=== PATIENT | male | born 1955 | race American Indian/Alaskan Native ===

== ENCOUNTER 2020-12-18 18:39 | Observation (INO) | payer MEDICARE ==
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
[2020-12-18 21:26] LABS: Basophils # (Auto) 0.1 K/mm3 (0.0-0.1); Basophils % (Auto) 1.5 % (0.0-1.8); Eosinophils # (Auto) 0.2 K/mm3 (0.0-0.4); Eosinophils % (Auto) 5.3 % (0.0-4.3); Hematocrit 36.7 % (35.5-45.6); Hemoglobin 11.7 gm/dl (11.8-15.2); Lymphocytes # (Auto) 1.5 K/mm3 (1.2-5.4); Lymphocytes % (Auto) 33.8 % (13.4-35.0); Mean Corpuscular HGB Conc 32 % (32-34); Mean Corpuscular Volume 98 fl (84-94); Monocytes # (Auto) 0.6 K/mm3 (0.0-0.8); Monocytes % (Auto) 13.1 % (0.0-7.3); Platelet Count 155 K/mm3 (140-440); Red Blood Count 3.74 M/mm3 (3.65-5.03); Red Cell Distribution Width 16.5 % (13.2-15.2)
[2020-12-18] MEDS ORDERED: LACTATED RINGERS 500 ML IV ONE (21:26)
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
[2020-12-18 21:35] LABS: INR 1.09 (0.87-1.13)
[2020-12-18 21:41] LABS: Albumin 3.3 g/dL (3.9-5); Calcium 7.8 mg/dL (8.4-10.2)
[2020-12-18] MEDS ORDERED: MORPHINE 4 MG/1 ML INJ IV PRN (22:27)
[2020-12-18] MEDS ORDERED: MAGNESIUM HYDROXIDE (MOM) ORAL LIQD UDC PO PRN (22:27)
[2020-12-18] MEDS ORDERED: ONDANSETRON 4 MG/2 ML INJ IV PRN (22:27)
[2020-12-18] MEDS ORDERED: MORPHINE 2 MG/1 ML INJ IV PRN (22:27)
[2020-12-18] MEDS ORDERED: ACETAMINOPHEN 325 MG TAB PO PRN (22:27)
[2020-12-18] MEDS ORDERED: SODIUM CHLORIDE 0.9% 1000 ML 1,000 ML IV SCH (22:30)
--- NOTE | 2020-12-18 22:35 | History and Physical Report ---
History of Present Illness Date of examination: 12/18/20 Date of admission: 12/18/2020 Chief complaint: Hypotension History of present illness: 65-year-old -[place] male with known history of CHF, anemia, hypothyroidism, COPD and history of malnutrition, end-stage renal disease who gets dialysis on Mondays, Wednesdays and Fridays presents to the emergency room today with hypotension. Patient is currently on metoprolol and hydralazine for his blood pressure. Dialysis could not be done today because of hypotension. Systolic blood pressure was said to be in the 60s and 70s patient was subsequently given some IV fluid by EMS in route to the hospital with some improvement in his blood pressure. Patient denies any headache or dizziness but indicates that he has generalized weakness. Denies any fever or chills, no chest pain or shortness of breath, no nausea vomiting, no abdominal pain, no diarrhea. Patient denies any sick contacts and denies any contact with anyone with COVID-19. Patient recently moved from [place] in the first week of this month to spend time with his daughter and grandchildren. Upon arrival in the emergency room systolic blood pressure did improve to the low 100s. Work-up in the emergency room today including chest x-ray reveals cardiomegaly, right basilar scarring with no focal airspace consolidation or pneumothorax Past History Past Medical History: COPD, dialysis, ESRD, hypertension, hyperlipidemia, migraines, stroke Past Surgical History: Other (Pacemaker placement, left arm AV fistula placement.) Social history: smoking (Former smoker), full code Family history: no significant family history Medications and Allergies Allergies Allergy/AdvReac Type Severity Reaction Status Date / Time methimazole [From Tapazole] Allergy Severe Anaphylaxis Verified 12/18/20 20:35 Home Medications Medication Instructions Recorded Confirmed Last Taken Type Amiodarone 100 MG TAB 12/18/20 Unknown History Atorvastatin Calcium 12/18/20 Unknown History Active Meds: Active Medications Acetaminophen (Acetaminophen 325 Mg Tab) 650 mg PO Q4H PRN PRN Reason: Pain MILD(1-3)/Fever >100.5/ARAYA Heparin Sodium (Porcine) (Heparin 5,000 Unit/1 Ml Vial) 5,000 unit SUB-Q Q8HR FAUSTO Sodium Chloride (Nacl 0.9% 1000 Ml) 1,000 mls @ 75 mls/hr IV DIRECT FAUSTO Magnesium Hydroxide (Magnesium Hydroxide (Mom) Oral Liqd Udc) 30 ml PO Q4H PRN PRN Reason: Constipation Morphine Sulfate (Morphine 2 Mg/1 Ml Inj) 2 mg IV Q4H PRN PRN Reason: Pain, Moderate (4-6) Morphine Sulfate (Morphine 4 Mg/1 Ml Inj) 4 mg IV Q4H PRN PRN Reason: Pain , Severe (7-10) Ondansetron HCl (Ondansetron 4 Mg/2 Ml Inj) 4 mg IV Q8H PRN PRN Reason: Nausea And Vomiting Sodium Chloride (Sodium Chloride 0.9% 10 Ml Flush Syringe) 10 ml IV BID FUASTO Sodium Chloride (Sodium Chloride 0.9% 10 Ml Flush Syringe) 10 ml IV PRN PRN PRN Reason: LINE FLUSH Review of Systems Constitutional: no fever, no chills Ears, nose, mouth and throat: no nasal congestion, no sore throat Cardiovascular: no chest pain, no palpitations Respiratory: no cough, no shortness of breath Gastrointestinal: no abdominal pain, no nausea, no vomiting, no diarrhea Genitourinary Male: no dysuria, no hematuria, no flank pain, no nocturia Musculoskeletal: no neck pain, no low back pain Integumentary: no rash, no pruritis Neurological: weakness, no syncope, no headaches, no confusion Psychiatric: no anxiety, no depression Endocrine: no polyphagia, no polydipsia, no polyuria, no nocturia Exam - Constitutional Vitals: Temp Pulse Resp BP Pulse Ox 98.6 F 106 H 17 106/63 99 12/18/20 20:56 12/18/20 20:01 12/18/20 20:30 12/18/20 20:01 12/18/20 20:01 General appearance: Present: no acute distress, well-nourished - EENT Eyes: Present: PERRL, EOM intact. Absent: scleral icterus ENT: hearing intact, clear oral mucosa, dentition normal - Neck Neck: Present: supple, normal ROM - Respiratory Respiratory effort: normal Respiratory: bilateral: CTA - Cardiovascular Rhythm: regular Heart Sounds: Present: S1 & S2, systolic murmur (3/6 systolic murmur). Absent: gallop, diastolic murmur, rub, click - Extremities Extremities: no ischemia, pulses intact, pulses symmetrical, No edema, normal temperature, normal color, Full ROM Peripheral Pulses: within normal limits - Abdominal General gastrointestinal: Present: soft, non-tender, non-distended, normal bowel sounds. Absent: mass - Integumentary Integumentary: Present: clear, warm, dry. Absent: rash - Musculoskeletal Musculoskeletal: strength equal bilaterally, other (Left upper extremity AV fistula) - Psychiatric Psychiatric: appropriate mood/affect, intact judgment & insight, memory intact, cooperative - Neurologic Neurologic: CNII-XII intact, no focal deficits, moves all extremities Results - Labs CBC & Chem 7: 12/18/20 20:44 12/18/20 20:44 Labs: Abnormal lab results 12/18/20 12/18/20 12/18/20 Range/Units 20:44 20:44 20:44 WBC 4.3 L (4.5-11.0) K/mm3 Hgb 11.7 L (11.8-15.2) gm/dl MCV 98 H (84-94) fl RDW 16.5 H (13.2-15.2) % [place] % (Auto) 13.1 H (0.0-7.3) % Eos % (Auto) 5.3 H (0.0-4.3) % BUN 37 H (9-20) mg/dL Creatinine 9.8 H (0.8-1.3) mg/dL Calcium 7.8 L (8.4-10.2) mg/dL Phosphorus 4.90 H (2.5-4.5) mg/dL Magnesium 2.40 H (1.7-2.3) mg/dL AST 42 H (5-40) units/L Alkaline Phosphatase 155 H (35-129) units/L Ammonia (25-60) umol/L Total Protein 8.5 H (6.3-8.2) g/dL Albumin 3.3 L (3.9-5) g/dL TSH 6.440 H (0.270-4.200) mlU/mL 12/18/20 Range/Units 20:44 WBC (4.5-11.0) K/mm3 Hgb (11.8-15.2) gm/dl MCV (84-94) fl RDW (13.2-15.2) % [place] % (Auto) (0.0-7.3) % Eos % (Auto) (0.0-4.3) % BUN (9-20) mg/dL Creatinine (0.8-1.3) mg/dL Calcium (8.4-10.2) mg/dL Phosphorus (2.5-4.5) mg/dL Magnesium (1.7-2.3) mg/dL AST (5-40) units/L Alkaline Phosphatase (35-129) units/L Ammonia 23.0 L (25-60) umol/L Total Protein (6.3-8.2) g/dL Albumin (3.9-5) g/dL TSH (0.270-4.200) mlU/mL Assessment and Plan - Patient Problems (1) Hypotension Current Visit: Yes Status: Acute Plan to address problem: Possibly iatrogenic. Will review and reconcile home medications. Will monitor vital signs closely. Meanwhile patient will be placed on gentle IV hydration with normal saline. (2) End-stage renal disease on hemodialysis Current Visit: Yes Status: Acute Plan to address problem: Patient gets dialysis on Mondays, Wednesdays and Fridays. His current mechatronics engineer is:Dr. Tyshawn Dwyer [employer] has been consulted for evaluation. He did not get his dialysis today because of the hypotension. (3) Hypothyroidism Current Visit: Yes Status: Acute Plan to address problem: We will resume routine home medications and monitor TSH and free T4. (4) DVT prophylaxis Current Visit: Yes Status: Acute Plan to address problem: Patient placed on subcutaneous heparin.
[2020-12-19] MEDS: HEPARIN 5,000 UNIT/1 ML VIAL SUB-Q SCH ×2 (05:32→16:29)
[2020-12-19 06:31] LABS: INR 1.09 (0.87-1.13)
[2020-12-19] MEDS ORDERED: SODIUM CHLORIDE 0.9% 100 ML IV PRN (07:30)
[2020-12-19 08:00] LABS: Calcium 7.6 mg/dL (8.4-10.2)
[2020-12-19] MEDS ORDERED: HEPARIN 10,000 UNITS/10 ML VIAL IV PRN (08:00)
[2020-12-19] MEDS: SEVELAMER CARBONATE 800 MG TAB PO SCH ×3 (08:02→18:09)
--- NOTE | 2020-12-19 09:15 | Consultation ---
History of Present Illness - Reason for Consult Consult date: 12/19/20 end stage renal disease - History of Present Illness The patient is a 65 YO AAM with known history of CHF, Anemia, Hypothyroidism, COPD and ESRD on hemodialysis (MWF) who presented to [facility] ED 12/18 for evaluation of hypotension. Patient was taking Metoprolol and Hydralazine for hypertension. he couldn't get dialysis on 12/18/20 due to hypotension. Systolic blood pressure was said to be in the 60s and 70s, EMS was called, patient was subsequently given some IV fluid by EMS in route to the hospital with some improvement in his blood pressure. Hsi BP got better in the ED. Patient denies any complaint. Denies any fever, chills, chest pain, shortness of breath, nausea, vomiting, abdominal pain, diarrhea, dizziness, syncope, leg swelling, sick contacts and any contact with anyone with COVID-19. Patient recently moved from [place] in the first week of this month to spend time with his daughter and grandchildren. CXR showed cardiomegaly, right basilar scarring with no focal airspace consolidation or pneumothorax. Nephrology was consulted for ESRD management. Past History Past Medical History: COPD, dialysis, ESRD, hypertension, hyperlipidemia, migraines, stroke Past Surgical History: Other (Pacemaker placement, left arm AV fistula placem ent.) Social history: smoking (Former smoker), full code Family history: no significant family history Medications and Allergies Allergies Allergy/AdvReac Type Severity Reaction Status Date / Time methimazole [From Tapazole] Allergy Severe Anaphylaxis Verified 12/18/20 20:35 Home Medications Medication Instructions Recorded Confirmed Last Taken Type Amiodarone HCl [Amiodarone 100 MG 100 mg PO 12/19/20 Unknown History TAB] AtorvaSTATin [Lipitor] 12/19/20 Unknown History Calcium Carbonate [Calcium 500 mg PO 12/19/20 Unknown History Carbonate 500MG TAB] Hydralazine HCl 50 mg PO 12/19/20 Unknown History Isosorbide Dinit/Hydralazine 1 each PO 12/19/20 Unknown History [Bidil 20 mg-37.5 mg Tablet] Lactulose 10 gm PO 12/19/20 Unknown History Levothyroxine Sodium 137 mcg PO 12/19/20 Unknown History [Levothyroxine] Metoprolol [Lopressor] 25 mg PO 12/19/20 Unknown History Sevelamer Carbonate [Renvela] 800 mg PO TIDWM 12/19/20 12/19/20 Unknown History levETIRAcetam [Keppra TAB] 500 mg PO BID 12/19/20 12/19/20 Unknown History Active Meds: Active Medications Acetaminophen (Acetaminophen 325 Mg Tab) 650 mg PO Q4H PRN PRN Reason: Pain MILD(1-3)/Fever >100.5/ARAYA Heparin Sodium (Porcine) (Heparin 5,000 Unit/1 Ml Vial) 5,000 unit SUB-Q Q8HR [facility] Last Admin: 12/19/20 05:32 Dose: 5,000 unit Documented by: Heparin Sodium (Porcine) (Heparin 10,000 Units/10 Ml Vial) 3,000 unit IV IGNACIO PRN PRN Reason: hemodialysis Sodium Chloride (Nacl 0.9% 1000 Ml) 1,000 mls @ 75 mls/hr IV DIRECT FAUSTO Sodium Chloride (Nacl 0.9%) 100 mls @ 999 mls/hr IV IGNACIO PRN PRN Reason: Hypotension Levetiracetam (Levetiracetam 500 Mg Tab) 500 mg PO BID [facility] Magnesium Hydroxide (Magnesium Hydroxide (Mom) Oral Liqd Udc) 30 ml PO Q4H PRN PRN Reason: Constipation Morphine Sulfate (Morphine 2 Mg/1 Ml Inj) 2 mg IV Q4H PRN PRN Reason: Pain, Moderate (4-6) Morphine Sulfate (Morphine 4 Mg/1 Ml Inj) 4 mg IV Q4H PRN PRN Reason: Pain , Severe (7-10) Ondansetron HCl (Ondansetron 4 Mg/2 Ml Inj) 4 mg IV Q8H PRN PRN Reason: Nausea And Vomiting Sevelamer Carbonate (Sevelamer Carbonate 800 Mg Tab) 800 mg PO TIDWM [facility] Last Admin: 12/19/20 08:02 Dose: 800 mg Documented by: Sodium Chloride (Sodium Chloride 0.9% 10 Ml Flush Syringe) 10 ml IV BID [facility] Sodium Chloride (Sodium Chloride 0.9% 10 Ml Flush Syringe) 10 ml IV PRN PRN PRN Reason: LINE FLUSH Review of Systems Constitutional: no weight loss, no weight gain, no fever, no chills, no anorexia, no weakness, no poor appetite Cardiovascular: no chest pain, no edema, no syncope, no lightheadedness, no shortness of breath, no leg edema Respiratory: no cough, no shortness of breath, no dyspnea on exertion Gastrointestinal: no abdominal pain, no nausea, no vomiting, no diarrhea, no melena Neurological: no convulsions, no aphasia, no change in speech, no change in mentation, no confusion, no memory loss Exam - Vital Signs Vital signs: Vital Signs Pulse Resp BP Pulse Ox 106 H 16 106/63 99 12/18/20 20:01 12/18/20 20:01 12/18/20 20:01 12/18/20 20:01 Results - Lab Results 12/18/20 20:44 12/19/20 06:10 Most recent lab results Calcium 7.6 mg/dL (8.4-10.2) L 12/19/20 06:10 Phosphorus 4.90 mg/dL (2.5-4.5) H 12/18/20 20:44 Magnesium 2.40 mg/dL (1.7-2.3) H 12/18/20 20:44 Assessment and Plan 1. ESRD: Patient is on maintenance hemodialysis three times a week, MWF schedule. Meds dosage based on GFR. Missed HD 12/18. Hemodialysis: 12/19. 2. FEN: Monitor lytes and volume status. 3. Anemia, POA: 2/2 ESRD. Epogen with HD as needed. 4. Hypotension: Resolved. Adjust meds as needed. Monitor. Subjective: Patient was seen and examined at the bedside. General Appearance: General appearance: well-developed, appears stated age, not in distress HEENT: ATNC, pupils equal Neck: trachea midline Respiratory: bibasal rales heard Heart: regular, S1S2, no murmur Abdomen: soft, bowel sounds heard, not tender Integumentary: no rash, warm and dry Neurologic: AO, able to move extremities Ext: no edema Hemodialysis access: L arm AVF
--- NOTE | 2020-12-19 11:01 | Progress Note ---
Assessment and Plan Assessment and plan: ESRD on hemodialysis Hypotension Hypothyroidism 12/19/2020. Continue hemodialysis per nephrology recommendations. Etiology of hypotension unknown at this time but may be related to ESRD. Blood cultures are pending to rule out/bacteremia as cause for hypotension. Consider midodrine. Continue to hold home medications of metoprolol and hydralazine. History Interval history: No new issues overnight Hospitalist Physical - Constitutional Vitals: Temp Pulse Resp BP Pulse Ox 98.6 F 62 20 119/77 96 12/18/20 20:56 12/19/20 07:58 12/19/20 07:58 12/19/20 07:58 12/19/20 07:58 General appearance: Present: no acute distress, well-nourished - EENT Eyes: Present: PERRL, EOM intact ENT: hearing intact, clear oral mucosa, dentition normal - Neck Neck: Present: supple, normal ROM - Respiratory Respiratory effort: normal Respiratory: bilateral: CTA - Cardiovascular Rhythm: regular Heart Sounds: Present: S1 & S2. Absent: gallop, rub - Extremities Extremities: no ischemia, No edema, Full ROM - Abdominal General gastrointestinal: soft, non-tender, non-distended, normal bowel sounds - Integumentary Integumentary: Present: clear, warm, dry - Neurologic Neurologic: CNII-XII intact, moves all extremities Results - Labs CBC & Chem 7: 12/18/20 20:44 12/19/20 06:10 Labs: Laboratory Last Values WBC 4.3 K/mm3 (4.5-11.0) L 12/18/20 20:44 RBC 3.74 M/mm3 (3.65-5.03) 12/18/20 20:44 Hgb 11.7 gm/dl (11.8-15.2) L 12/18/20 20:44 Hct 36.7 % (35.5-45.6) 12/18/20 20:44 MCV 98 fl (84-94) H 12/18/20 20:44 MCH 31 pg (28-32) 12/18/20 20:44 MCHC 32 % (32-34) 12/18/20 20:44 RDW 16.5 % (13.2-15.2) H 12/18/20 20:44 Plt Count 155 K/mm3 (140-440) 12/18/20 20:44 Lymph % (Auto) 33.8 % (13.4-35.0) 12/18/20 20:44 [place] % (Auto) 13.1 % (0.0-7.3) H 12/18/20 20:44 Eos % (Auto) 5.3 % (0.0-4.3) H 12/18/20 20:44 Baso % (Auto) 1.5 % (0.0-1.8) 12/18/20 20:44 Lymph # (Auto) 1.5 K/mm3 (1.2-5.4) 12/18/20 20:44 [place] # (Auto) 0.6 K/mm3 (0.0-0.8) 12/18/20 20:44 Eos # (Auto) 0.2 K/mm3 (0.0-0.4) 12/18/20 20:44 Baso # (Auto) 0.1 K/mm3 (0.0-0.1) 12/18/20 20:44 Seg Neutrophils % 46.3 % (40.0-70.0) 12/18/20 20:44 Seg Neutrophils # 2.0 K/mm3 (1.8-7.7) 12/18/20 20:44 PT 14.6 Sec. (12.2-14.9) 12/19/20 06:10 INR 1.09 (0.87-1.13) 12/19/20 06:10 Sodium 138 mmol/L (137-145) 12/19/20 06:10 Potassium 5.0 mmol/L (3.6-5.0) 12/19/20 06:10 Chloride 101.4 mmol/L (98-107) 12/19/20 06:10 Carbon Dioxide 18 mmol/L (22-30) L 12/19/20 06:10 Anion Gap 24 mmol/L 12/19/20 06:10 BUN 43 mg/dL (9-20) H 12/19/20 06:10 Creatinine 10.2 mg/dL (0.8-1.3) H 12/19/20 06:10 Estimated GFR 6 ml/min 12/19/20 06:10 BUN/Creatinine Ratio 4 % 12/19/20 06:10 Glucose 100 mg/dL (75-100) 12/19/20 06:10 POC Glucose 92 mg/dL (70-105) 12/19/20 07:25 Lactic Acid 1.30 mmol/L (0.7-2.0) 12/18/20 20:44 Calcium 7.6 mg/dL (8.4-10.2) L 12/19/20 06:10 Phosphorus 4.90 mg/dL (2.5-4.5) H 12/18/20 20:44 Magnesium 2.40 mg/dL (1.7-2.3) H 12/18/20 20:44 Total Bilirubin 0.50 mg/dL (0.1-1.2) 12/18/20 20:44 AST 42 units/L (5-40) H 12/18/20 20:44 ALT 17 units/L (7-56) 12/18/20 20:44 Alkaline Phosphatase 155 units/L (35-129) H 12/18/20 20:44 Ammonia 23.0 umol/L (25-60) L 12/18/20 20:44 Total Creatine Kinase 90 units/L (55-170) 12/18/20 20:44 Total Protein 8.5 g/dL (6.3-8.2) H 12/18/20 20:44 Albumin 3.3 g/dL (3.9-5) L 12/18/20 20:44 Albumin/Globulin Ratio 0.6 % 12/18/20 20:44 TSH 6.440 mlU/mL (0.270-4.200) H 12/18/20 20:44 Microbiology: Microbiology 12/18/20 20:54 Peripheral/Venous Blood Culture - Preliminary Culture in Progress 12/18/20 20:44 Peripheral/Venous Blood Culture - Preliminary Culture in Progress Active Medications - Current Medications Current Medications: Generic Name Dose Route Start Last Admin Trade Name Freq PRN Reason Stop Dose Admin Acetaminophen 650 mg 12/18/20 22:27 Acetaminophen 325 Mg Tab PO Q4H PRN Pain MILD(1-3)/Fever >100.5/ARAYA Heparin Sodium (Porcine) 5,000 unit 12/19/20 06:00 12/19/20 05:32 Heparin 5,000 Unit/1 Ml Vial SUB-Q 5,000 unit Q8HR [facility] Administration Heparin Sodium (Porcine) 3,000 unit 12/19/20 08:00 Heparin 10,000 Units/10 Ml Vial IV IGNACIO PRN hemodialysis Sodium Chloride 1,000 mls @ 75 mls/hr 12/18/20 22:30 Nacl 0.9% 1000 Ml IV DIRECT FAUSTO Sodium Chloride 100 mls @ 999 mls/hr 12/19/20 07:30 Nacl 0.9% IV IGNACIO PRN Hypotension Levetiracetam 500 mg 12/19/20 10:00 Levetiracetam 500 Mg Tab PO BID [facility] Magnesium Hydroxide 30 ml 12/18/20 22:27 Magnesium Hydroxide (Mom) Oral Liqd Udc PO Q4H PRN Constipation Morphine Sulfate 2 mg 12/18/20 22:27 Morphine 2 Mg/1 Ml Inj IV Q4H PRN Pain, Moderate (4-6) Morphine Sulfate 4 mg 12/18/20 22:27 Morphine 4 Mg/1 Ml Inj IV Q4H PRN Pain , Severe (7-10) Ondansetron HCl 4 mg 12/18/20 22:27 Ondansetron 4 Mg/2 Ml Inj IV Q8H PRN Nausea And Vomiting Sevelamer Carbonate 800 mg 12/19/20 08:00 12/19/20 08:02 Sevelamer Carbonate 800 Mg Tab PO 800 mg TIDWM [facility]USTO Administration Sodium Chloride 10 ml 12/19/20 10:00 Sodium Chloride 0.9% 10 Ml Flush Syringe IV BID [facility] Sodium Chloride 10 ml 12/18/20 22:27 Sodium Chloride 0.9% 10 Ml Flush Syringe IV PRN PRN LINE FLUSH
[2020-12-19 11:08] LABS: Hepatitis B Surface Antigen Non-Reactive (Negative); Hepatitis C Virus Antibody Reactive (NonReactive)
[2020-12-19] MEDS: levETIRAcetam 500 MG TAB PO SCH ×2 (11:32→22:01)
--- NOTE | 2020-12-19 12:36 | Electrocardiograph Report ---
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
[2020-12-20] MEDS: HEPARIN 5,000 UNIT/1 ML VIAL SUB-Q SCH ×2 (06:06)
--- NOTE | 2020-12-20 07:52 | Discharge Summary ---
Providers - Providers Date of Admission: 12/18/20 22:27 Date of discharge: 12/20/20 Attending physician: BELLA WESTON 12/18/20 22:13 Consult to Physician [CONS] Urgent Comment: Consulting Provider: GYPSY WALL Physician Instructions: Reason For Exam: esrd Primary care physician: [employer] Hospitalization Reason for admission: hypotension Condition: Good Hospital course: The patient is a 65 YO AAM with known history of CHF, Anemia, Hypothyroidism, COPD and ESRD on hemodialysis (MWF) who presented to [facility] ED 12/18 for evaluation of hypotension. Patient was taking Metoprolol and Hydralazine for hypertension. he couldn't get dialysis on 12/18/20 due to hypotension. Systolic blood pressure was said to be in the 60s and 70s, EMS was called, patient was subsequently given some IV fluid by EMS in route to the hospital with some improvement in his blood pressure. His BP got better in the ED. Patient recently moved from [place] in the first week of this month to spend time with his daughter and grandchildren. CXR showed cardiomegaly, right basilar scarring with no focal airspace consolidation or pneumothorax. Nephrology was consulted for ESRD management. The patient's blood pressure remained stable during hospitalization off antihypertensive medications. Blood cultures were negative. No evidence of sepsis/SIRS or infection. The patient will receive hemodialysis today and if continues to remain hemodynamic stable, then will be discharged home. Dedicated discharge time 35 minutes Disposition: DC-01 TO HOME OR SELFCARE Final Discharge Diagnosis (Prints w/discharge instructions): Hypotension, ESRD, anemia, Core Measure Documentation - Palliative Care Palliative Care/ Comfort Measures: Not Applicable - Core Measures Any of the following diagnoses?: none Exam - Constitutional Vitals: Temp Pulse Resp BP Pulse Ox 98.0 F 68 18 112/54 94 12/20/20 03:28 12/20/20 03:28 12/20/20 03:28 12/20/20 03:28 12/20/20 03:28 General appearance: Present: no acute distress, well-nourished - EENT Eyes: Present: PERRL ENT: hearing intact, clear oral mucosa - Neck Neck: Present: supple, normal ROM - Respiratory Respiratory effort: normal Respiratory: bilateral: CTA - Cardiovascular Heart Sounds: Present: S1 & S2. Absent: rub, click - Extremities Extremities: pulses symmetrical, No edema Peripheral Pulses: within normal limits - Abdominal General gastrointestinal: Present: soft, non-tender, non-distended, normal bowel sounds Male genitourinary: Present: normal - Integumentary Integumentary: Present: clear, warm, dry - Musculoskeletal Musculoskeletal: gait normal, strength equal bilaterally - Psychiatric Psychiatric: appropriate mood/affect, intact judgment & insight - Neurologic Neurologic: CNII-XII intact, moves all extremities Plan Activity: advance as tolerated Weight Bearing Status: Weight Bear as Tolerated Diet: renal Follow up with: PRIMARY CAREMD [Primary Care Provider] - 3-5 Days GYPSY WALL MD [Staff Physician] - 7 Days Prescriptions: Amiodarone HCl [Amiodarone 100 MG TAB] 100 mg PO BID #30 levETIRAcetam [Keppra TAB] 500 mg PO BID #60 Levothyroxine Sodium [Levothyroxine] 137 mcg PO DAILY #30 cap Sevelamer Carbonate [Renvela] 800 mg PO TIDWM #90
--- NOTE | 2020-12-20 08:41 | Progress Note ---
Assessment and Plan 1. ESRD: Patient is on maintenance hemodialysis three times a week, MWF schedule. Meds dosage based on GFR. Missed HD 12/18. Hemodialysis: 12/19. 2. FEN: Monitor lytes and volume status. 3. Anemia, POA: 2/2 ESRD. Epogen with HD as needed. 4. Hypotension: Resolved. Adjust meds as needed. Monitor. Subjective: Patient was seen and examined at the bedside. Doing ok. General Appearance: General appearance: well-developed, appears stated age, not in distress HEENT: ATNC, pupils equal Neck: trachea midline Respiratory: ctab Heart: regular, S1S2, no murmur Abdomen: soft, bowel sounds heard, not tender Integumentary: no rash, warm and dry Neurologic: AO, able to move extremities Ext: no edema Hemodialysis access: L arm AVF Subjective Date of service: 12/20/20 Objective - Vital Signs Vital signs: Vital Signs - 12hr 12/19/20 12/19/20 12/19/20 21:00 21:50 22:00 Temperature Pulse Rate 72 67 65 Pulse Rate [ From Monitor] Pulse Rate [ Left Radial] Respiratory 22 10 L 20 Rate Blood Pressure 132/75 132/75 124/67 O2 Sat by Pulse 98 94 96 Oximetry 12/19/20 12/19/20 12/19/20 22:10 22:30 22:46 Temperature 98.4 F Pulse Rate 65 66 Pulse Rate [ 66 From Monitor] Pulse Rate [ 66 Left Radial] Respiratory 18 20 Rate Blood Pressure 124/67 124/67 O2 Sat by Pulse 96 90 Oximetry 12/20/20 12/20/20 12/20/20 01:02 03:28 08:02 Temperature 98.0 F 98.0 F Pulse Rate 68 68 69 Pulse Rate [ From Monitor] Pulse Rate [ Left Radial] Respiratory 18 18 Rate Blood Pressure 112/54 118/56 O2 Sat by Pulse 94 95 Oximetry - Lab 12/18/20 20:44 12/19/20 06:10 Most recent lab results Calcium 7.6 mg/dL (8.4-10.2) L 12/19/20 06:10 Phosphorus 4.90 mg/dL (2.5-4.5) H 12/18/20 20:44 Magnesium 2.40 mg/dL (1.7-2.3) H 12/18/20 20:44 Medications & Allergies - Medications Allergies/Adverse Reactions: Allergies methimazole [From Tapazole] Allergy (Severe, Verified 12/18/20 20:35) Anaphylaxis Home Medications: Home Medications Medication Instructions Recorded Confirmed Last Taken Type AtorvaSTATin [Lipitor] 12/19/20 Unknown History Calcium Carbonate [Calcium 500 mg PO 12/19/20 Unknown History Carbonate 500MG TAB] Lactulose 10 gm PO 12/19/20 Unknown History Amiodarone HCl [Amiodarone 100 MG 100 mg PO BID #30 12/20/20 Unknown Rx TAB] Levothyroxine Sodium 137 mcg PO DAILY #30 cap 12/20/20 Unknown Rx [Levothyroxine] Sevelamer Carbonate [Renvela] 800 mg PO TIDWM #90 12/20/20 Unknown Rx levETIRAcetam [Keppra TAB] 500 mg PO BID #60 12/20/20 Unknown Rx Active Medications: Generic Name Dose Route Start Last Admin Trade Name Freq PRN Reason Stop Dose Admin Acetaminophen 650 mg 12/18/20 22:27 Acetaminophen 325 Mg Tab PO Q4H PRN Pain MILD(1-3)/Fever >100.5/ARAYA Heparin Sodium (Porcine) 5,000 unit 12/19/20 06:00 12/20/20 06:06 Heparin 5,000 Unit/1 Ml Vial SUB-Q 5,000 unit Q8HR [facility] Administration Heparin Sodium (Porcine) 3,000 unit 12/19/20 08:00 Heparin 10,000 Units/10 Ml Vial IV IGNACIO PRN hemodialysis Sodium Chloride 1,000 mls @ 75 mls/hr 12/18/20 22:30 Nacl 0.9% 1000 Ml IV DIRECT [facility]O Sodium Chloride 100 mls @ 999 mls/hr 12/19/20 07:30 Nacl 0.9% IV IGNACIO PRN Hypotension Levetiracetam 500 mg 12/19/20 10:00 12/19/20 22:01 Levetiracetam 500 Mg Tab PO Not Given BID [facility] Magnesium Hydroxide 30 ml 12/18/20 22:27 Magnesium Hydroxide (Mom) Oral Liqd Udc PO Q4H PRN Constipation Morphine Sulfate 2 mg 12/18/20 22:27 Morphine 2 Mg/1 Ml Inj IV Q4H PRN Pain, Moderate (4-6) Morphine Sulfate 4 mg 12/18/20 22:27 Morphine 4 Mg/1 Ml Inj IV Q4H PRN Pain , Severe (7-10) Ondansetron HCl 4 mg 12/18/20 22:27 Ondansetron 4 Mg/2 Ml Inj IV Q8H PRN Nausea And Vomiting Sevelamer Carbonate 800 mg 12/19/20 08:00 12/19/20 18:09 Sevelamer Carbonate 800 Mg Tab PO Not Given TIDWM [facility] Sodium Chloride 10 ml 12/19/20 10:00 12/19/20 21:52 Sodium Chloride 0.9% 10 Ml Flush Syringe IV 10 ml BID [facility]O Administration Sodium Chloride 10 ml 12/18/20 22:27 Sodium Chloride 0.9% 10 Ml Flush Syringe IV PRN PRN LINE FLUSH
--- NOTE | 2020-12-20 09:34 | Ultrasound Report ---
ULTRASOUND RENAL INDICATION / CLINICAL INFORMATION: ERLINDA. COMPARISON: None available. FINDINGS: RIGHT KIDNEY: Length = 6.0 cm. - Echogenicity: Increased. - Cortical Thickness: Mild to moderate thinning. - Hydronephrosis: None. - Cyst / Mass: None. - Stones: None seen. LEFT KIDNEY: Length = 6.3 cm. - Echogenicity: Increased. - Cortical Thickness: Mild to moderate thinning. - Hydronephrosis: None. - Cyst / Mass: None. - Stones: None seen. URINARY BLADDER: No significant abnormality. FREE FLUID: None. ADDITIONAL FINDINGS: A small amount of ascites is present within the right and left upper quadrants. Moderate ascites is present within the pelvis. IMPRESSION: 1. Atrophic kidneys bilaterally with sonographic evidence of chronic medical renal disease. 2. Abdominal ascites. Scribed by: Glendy Alcazar RDMS, RVT Scribed: 12/20/2020 8:04 AM I have reviewed the images, agree with this report, and edited this report as needed. Signer Name: José Miguel Ibrahim MD Signed: 12/20/2020 9:30 AM Workstation Name: [id number]
[2020-12-20] MEDS: SEVELAMER CARBONATE 800 MG TAB PO SCH ×2 (11:50)
[2020-12-20] MEDS: levETIRAcetam 500 MG TAB PO SCH (11:50)
[2020-12-20 12:47] VITALS: BP 120/59
== END 2020-12-20 13:11 | disposition home or self-care (01) ==
LOC: ED 18:39 → 4A 22:27
PROVIDERS: ADMIT Internal Medicine Geriatric Medicine; ATTEND Hospitalist
DX: I95.9 Hypotension, unspecified (principal); I12.0 Hypertensive chronic kidney disease with stage 5 chronic kidney disease or end stage renal disease; N18.6 End stage renal disease; E03.9 Hypothyroidism, unspecified; G43.909 Migraine, unspecified, not intractable, without status migrainosus; D64.9 Anemia, unspecified; E78.5 Hyperlipidemia, unspecified; Z99.2 Dependence on renal dialysis; Z86.73 Personal history of transient ischemic attack (TIA), and cerebral infarction without residual deficits; Z79.899 Other long term (current) drug therapy; Z98.890 Other specified postprocedural states; Z87.891 Personal history of nicotine dependence
CPT/HCPCS: 36415; 71045; 76770; 80048; 80053; 80074; 82140; 82550; 82962; 83735; 84100; 84443; 85025; 85610; 87040; 93005; 96372; 99285; 99406; G0378; J1644; J7120

== ENCOUNTER 2021-07-28 12:58 | Outpatient (CLI) | payer MEDICARE ==
--- NOTE | 2021-07-28 14:41 | XRay Report ---
Left shoulder 3 views INDICATION: Pain FINDINGS: Glenohumeral joint and AC joint appear normal. No acute fracture dislocation. Vascular sten t in the axilla. Signer Name: Umer Armenta MD Signed: 07/28/2021 2:36 PM Workstation Name: [id number]
[2021-07-28 15:28] LABS: Basophils # (Auto) 0.1 K/mm3 (0.0-0.1); Basophils % (Auto) 1.6 % (0.0-1.8); Eosinophils # (Auto) 0.3 K/mm3 (0.0-0.4); Hematocrit 35.6 % (35.5-45.6); Hemoglobin 11.3 gm/dl (11.8-15.2); Lymphocytes # (Auto) 1.6 K/mm3 (1.2-5.4); Lymphocytes % (Auto) 35.9 % (13.4-35.0); Mean Corpuscular HGB Conc 32 % (32-34); Mean Corpuscular Volume 101 fl (84-94); Monocytes # (Auto) 0.6 K/mm3 (0.0-0.8); Platelet Count 208 K/mm3 (140-440); Red Blood Count 3.54 M/mm3 (3.65-5.03); Red Cell Distribution Width 16.6 % (13.2-15.2)
[2021-07-28 16:34] LABS: Albumin 3.8 g/dL (3.9-5); Calcium 9.1 mg/dL (8.4-10.2); Chol/HDL Ratio 2.42 %
== END 2021-07-28 12:59 | disposition home or self-care (01) ==
LOC: XRAY 12:58
PROVIDERS: ATTEND Internal Medicine
DX: Z00.00 Encounter for general adult medical examination without abnormal findings (principal); Z13.1 Encounter for screening for diabetes mellitus; Z13.220 Encounter for screening for lipoid disorders; Z13.29 Encounter for screening for other suspected endocrine disorder; E55.9 Vitamin D deficiency, unspecified; M25.512 Pain in left shoulder
CPT/HCPCS: 36415; 80053; 80061; 82306; 83036; 84443; 85025

== ENCOUNTER 2021-10-13 21:08 | Emergency (ER) | payer MEDICARE ==
--- NOTE | 2021-10-13 22:07 | Emergency Department Report ---
- General Chief complaint: Weakness Stated complaint: WEAKNESS PUI?: No Time Seen by Provider: 10/13/21 21:40 Source: EMS Mode of arrival: Stretcher Limitations: No Limitations - History of Present Illness Initial comments: Patient is a 66-year-old male with history of end-stage renal disease on dialysis brought in by EMS for evaluation of generalized weakness after his dialysis appointment. States he received a full dialysis treatment. He reports feeling fine prior to dialysis. He denies any pain, shortness of breath, fever or chills. MD Complaint: generalized weakness Severity scale (0 -10): 0 - Related Data Home Medications Medication Instructions Recorded Confirmed Last Taken AtorvaSTATin [Lipitor] 12/19/20 Unknown Calcium Carbonate [Calcium 500 mg PO 12/19/20 Unknown Carbonate 500MG TAB] Lactulose 10 gm PO 12/19/20 Unknown Previous Rx's Medication Instructions Recorded Last Taken Type Amiodarone HCl [Amiodarone 100 MG 100 mg PO BID #30 12/20/20 Unknown Rx TAB] Levothyroxine Sodium 137 mcg PO DAILY #30 cap 12/20/20 Unknown Rx [Levothyroxine] Sevelamer Carbonate [Renvela] 800 mg PO TIDWM #90 12/20/20 Unknown Rx levETIRAcetam [Keppra TAB] 500 mg PO BID #60 12/20/20 Unknown Rx Allergies Allergy/AdvReac Type Severity Reaction Status Date / Time methimazole [From Tapazole] Allergy Severe Anaphylaxis Verified 12/18/20 20:35 ED Review of Systems ROS: Stated complaint: WEAKNESS Other details as noted in HPI Comment: All other systems reviewed and negative Constitutional: weakness Respiratory: denies: cough, shortness of breath, wheezing Cardiovascular: denies: chest pain, palpitations Gastrointestinal: denies: abdominal pain, nausea, vomiting Musculoskeletal: denies: back pain, arthralgia Neurological: denies: headache, weakness (No focal weakness) Psychiatric: denies: anxiety, depression Hematological/Lymphatic: denies: easy bleeding, easy bruising ED Past Medical Hx - Past Medical History Previous Medical History?: Yes Hx Hypertension: Yes (04/07/2017) Hx CVA: No Hx Heart Attack/AMI: No Hx Congestive Heart Failure: Yes Hx Diabetes: No Hx Deep Vein Thrombosis: No Hx Pulmonary Embolism: No Hx GERD: No Hx Liver Disease: No Hx Renal Disease: No Hx Sickle Cell Disease: No Hx Arthritis: No Hx Headaches / Migraines: Yes Hx Seizures: No Hx Kidney Stones: No Hx Psychiatric Treatment: No Hx Asthma: No Hx COPD: Yes Hx Tuberculosis: No Hx Dementia: No Hx HIV: No - Surgical History Past Surgical History?: Yes Hx Coronary Stent: No Hx Open Heart Surgery: No Hx Pacemaker: Yes Hx Internal Defibrillator: No Hx Cholecystectomy: No Hx Appendectomy: No Hx Breast Surgery: No Additional Surgical History: Pt has A/V Fistula to L arm - Social History Smoking Status: Unknown if ever smoked - Medications Home Medications: Home Medications Medication Instructions Recorded Confirmed Last Taken Type AtorvaSTATin [Lipitor] 12/19/20 Unknown History Calcium Carbonate [Calcium 500 mg PO 12/19/20 Unknown History Carbonate 500MG TAB] Lactulose 10 gm PO 12/19/20 Unknown History Amiodarone HCl [Amiodarone 100 MG 100 mg PO BID #30 12/20/20 Unknown Rx TAB] Levothyroxine Sodium 137 mcg PO DAILY #30 cap 12/20/20 Unknown Rx [Levothyroxine] Sevelamer Carbonate [Renvela] 800 mg PO TIDWM #90 12/20/20 Unknown Rx levETIRAcetam [Keppra TAB] 500 mg PO BID #60 12/20/20 Unknown Rx ED Physical Exam - General Limitations: No Limitations General appearance: alert, in no apparent distress - Head Head exam: Present: atraumatic, normocephalic - Respiratory Respiratory exam: Present: normal lung sounds bilaterally. Absent: respiratory distress, wheezes - Cardiovascular Cardiovascular Exam: Present: regular rate, normal rhythm, systolic murmur - GI/Abdominal GI/Abdominal exam: Present: soft. Absent: distended, tenderness - Rectal Rectal exam: Present: deferred - Neurological Exam Neurological exam: Present: alert, oriented X3 - Psychiatric Psychiatric exam: Present: normal affect, normal mood - Skin Skin exam: Present: warm, dry, intact, normal color ED Course Vital Signs 10/13/21 10/13/21 21:16 22:57 Temperature 97.9 F Pulse Rate 70 62 Respiratory 18 14 Rate Blood Pressure 132/68 Blood Pressure 121/57 [Right] O2 Sat by Pulse 97 99 Oximetry ED Medical Decision Making - Lab Data Result diagrams: 10/13/21 21:51 10/13/21 21:51 - Medical Decision Making 66-year-old male presenting to ED with complaint of generalized weakness after dialysis. Labs are reviewed with no findings to suggest etiology of his symptoms. CT head shows no acute intracranial abnormality. I suspect patient's symptoms are directly related to his dialysis treatment, likely too much being drawn off. He is stable for discharge home. Critical care attestation.: If time is entered above; I have spent that time in minutes in the direct care of this critically ill patient, excluding procedure time. ED Disposition Clinical Impression: Generalized weakness Disposition: 01 HOME / SELF CARE / HOMELESS Is pt being admited?: No Condition: Stable Instructions: Weakness Time of Disposition: 02:23
[2021-10-13 22:25] LABS: Hematocrit 34.2 % (35.5-45.6); Hemoglobin 11.3 gm/dl (11.8-15.2); Mean Corpuscular HGB Conc 33 % (32-34); Mean Corpuscular Volume 98 fl (84-94); Platelet Count 159 K/mm3 (140-440); Red Cell Distribution Width 16.4 % (13.2-15.2)
[2021-10-13 22:37] LABS: Albumin 3.5 g/dL (3.9-5); Calcium 9.3 mg/dL (8.4-10.2)
[2021-10-13 23:42] LABS: RBC Morphology Normal; Total Cells Counted 100
--- NOTE | 2021-10-14 01:15 | Cat Scan Report ---
CT HEAD WITHOUT CONTRAST INDICATION / CLINICAL INFORMATION: Pt complains of weakness. TECHNIQUE: All CT scans at this location are performed using CT dose reduction for ALARA by means of automated exposure control. COMPARISON: None available. FINDINGS: BRAIN PARENCHYMA: No acute intracranial hemorrhage. No evidence of recent infarct. No mass effect or midline shift. White matter chronic small vessel ischemic changes. VENTRICULAR SYSTEM/EXTRA-AXIAL SPACES: Age-related cerebral atrophy. No extra-axial fluid collection. ORBITS: No acute findings SKELETAL SYSTEM/SOFT TISSUES: Normal bones and soft tissues. PARANASAL SINUSES/MASTOID AIR CELLS: No significant abnormality. ADDITIONAL FINDINGS: None. IMPRESSION: 1. No acute intracranial abnormality. Signer Name: Lonnie Sanchez MD Signed: 10/14/2021 1:10 AM Workstation Name: [id number]
[2021-10-14 02:51] VITALS: BP 126/65
== END 2021-10-14 02:51 | disposition home or self-care (01) ==
LOC: ED 21:08
DX: R53.1 Weakness (principal); I11.0 Hypertensive heart disease with heart failure; I50.9 Heart failure, unspecified; G43.909 Migraine, unspecified, not intractable, without status migrainosus; J44.9 Chronic obstructive pulmonary disease, unspecified; Z98.890 Other specified postprocedural states; Z88.8 Allergy status to other drugs, medicaments and biological substances
CPT/HCPCS: 36415; 70450; 80053; 83735; 85007; 85025; 99284